=== PATIENT | female | born 1935 | race Two or more races ===

== ENCOUNTER 2021-02-18 12:19 | Emergency (ER) | payer MEDICARE, OTHER ==
[~2021-02-18] VITALS: Ht 152.4 cm; Wt 53.5 kg
[2021-02-18 12:31] VITALS: BP 161/90
--- NOTE | 2021-02-18 12:44 | NUR ---
AT BEDSIDE FOR EVAL.
--- NOTE | 2021-02-18 13:23 | NUR ---
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
--- NOTE | 2021-02-18 14:21 | NUR ---
Patient discharged to home in stable condition. Written and verbal after care instructions given. Patient verbalizes understanding of instruction.
== END 2021-02-18 14:21 | disposition home or self-care (01) ==
LOC: ER 12:23
DX: S40.012A Contusion of left shoulder, initial encounter (principal); I10 Essential (primary) hypertension; E78.5 Hyperlipidemia, unspecified; K21.9 Gastro-esophageal reflux disease without esophagitis; E03.9 Hypothyroidism, unspecified; W01.0XXA Fall on same level from slipping, tripping and stumbling without subsequent striking against object, initial encounter; Y93.89 Activity, other specified; Y92.89 Other specified places as the place of occurrence of the external cause; Y99.8 Other external cause status
CPT/HCPCS: 73030-TC